=== PATIENT | male | born 1985 | race Caucasian/White ===

== ENCOUNTER 2017-04-07 20:19 | Emergency (ER) | payer OTHER ==
[~2017-04-07] VITALS: Ht 182.9 cm; Wt 80.0 kg
[2017-04-07 20:20] VITALS: BP 126/80
[2017-04-07] MEDS ORDERED: TETRACAINE 0.5% OPHTH SOLN 4ML OS ONE (21:15)
[2017-04-07] MEDS ORDERED: FLUORESCEIN OPHTH 1 MG STRIP OS ONE (21:15)
[2017-04-07] MEDS ORDERED: VIGA0.02 OS (22:11)
== END 2017-04-07 22:20 | disposition home or self-care (01) ==
LOC: M ED 20:19
DX: H10.9 Unspecified conjunctivitis (principal); Z87.891 Personal history of nicotine dependence; Z82.49 Family history of ischemic heart disease and other diseases of the circulatory system; Z83.49 Family history of other endocrine, nutritional and metabolic diseases

== ENCOUNTER → 2019-01-30 | Outpatient (REF) | payer OTHER, SELFPAY ==
[~2019-01-30] MED LIST: VIGA0.02 OS
== END ==
LOC: M LAB REF 16:31
PROVIDERS: ATTEND Physician Assistant
DX: R50.9 Fever, unspecified (principal)

== ENCOUNTER → 2021-09-14 | Outpatient (REF) | payer OTHER | LOC: M LAB REF 16:22 | PROVIDERS: ATTEND Physician Assistant | DX: R50.9 Fever, unspecified (principal); R05.9 Cough, unspecified ==

== ENCOUNTER → 2023-05-28 | Outpatient (CLI) | payer OTHER ==
[2023-05-28 13:10] LABS: ESTRADIOL 27.7 PG/ML (<39.8); LUTEINIZING HORMONE 2.6 mIU/ML (1.5-9.3)
[2023-05-28 13:11] LABS: FOLLICLE STIMULATING HORMONE 4.6 mIU/ML (1.4-18.1)
[2023-05-29 21:09] LABS: TESTOSTERONE FREE (DIRECT) 10.4 pg/mL (8.7-25.1)
== END ==
LOC: M WUC 08:53
PROVIDERS: ATTEND Physician Assistant
DX: N52.9 Male erectile dysfunction, unspecified (principal)

== ENCOUNTER → 2023-07-02 | Outpatient (CLI) | payer OTHER | LOC: M WUC 08:24 | PROVIDERS: ATTEND Physician Assistant | DX: E29.1 Testicular hypofunction (principal) ==

== ENCOUNTER → 2023-09-08 | Outpatient (REF) | payer OTHER | LOC: M LAB REF 17:56 | PROVIDERS: ATTEND Physician Assistant Medical | DX: B34.9 Viral infection, unspecified (principal) ==

== ENCOUNTER → 2023-11-19 | Outpatient (CLI) | payer OTHER ==
[2023-11-19 14:41] LABS: BASO # 0.1 10^3/uL (0.0-0.2); BASO % 0.8 % (0.0-1.0); EOS # 0.2 10^3/uL (0.0-0.5); EOS % 2.3 % (0.0-3.0); HEMATOCRIT 46.3 % (42.0-52.0); HEMOGLOBIN 14.5 g/dl (13.5-17.5); LYMPH # 2.2 10^3/uL (1.5-5.0); LYMPH % 29.6 % (24.0-44.0); MEAN CORPUSCULAR HEMOGLOBIN 25.2 pg (27.0-33.0); MEAN CORPUSCULAR HGB CONC 31.3 g/dl (32.0-36.5); MEAN CORPUSCULAR VOLUME 80.5 fl (80.0-96.0); MONO # 0.6 10^3/uL (0.0-0.8); MONO % 8.1 % (2.0-8.0); NEUTROPHILS # 4.4 10^3/uL (1.5-8.5); NEUTROPHILS % 59.1 % (36.0-66.0); PLATELET COUNT, AUTOMATED 283 10^3/uL (150-450); RED BLOOD COUNT 5.75 10^6/uL (4.30-6.10); WHITE BLOOD COUNT 7.5 10^3/uL (4.0-10.0)
[2023-11-19 14:59] LABS: PROSTATIC SPECIFIC AG MONITOR 1.12 NG/ML (< 4.00)
== END ==
LOC: M WUC 09:10
PROVIDERS: ATTEND Physician Assistant
DX: E29.1 Testicular hypofunction (principal); Z80.42 Family history of malignant neoplasm of prostate

== ENCOUNTER 2024-02-09 13:08 | Emergency (ER) | payer OTHER, SELFPAY ==
[~2024-02-09] VITALS: Ht 180.3 cm; Wt 81.0 kg
[2024-02-09 13:09] VITALS: BP 153/89; TEMP 98; O2SAT 98
[2024-02-09] MEDS ORDERED: TEST75GE (13:17)
[2024-02-09] MEDS ORDERED: TADA5TAB (13:17)
== END 2024-02-09 14:52 | disposition home or self-care (01) ==
LOC: M ED 13:08
DX: S61.302A Unspecified open wound of right middle finger with damage to nail, initial encounter (principal); W26.0XXA Contact with knife, initial encounter; F17.200 Nicotine dependence, unspecified, uncomplicated; Y92.9 Unspecified place or not applicable; Y93.G1 Activity, food preparation and clean up; Y99.0 Civilian activity done for income or pay; Z79.2 Long term (current) use of antibiotics; Z79.899 Other long term (current) drug therapy

== ENCOUNTER → 2024-04-07 | Outpatient (CLI) | payer OTHER ==
[~2024-04-07] MED LIST changes: +TADA5TAB; +TEST75GE
== END ==
LOC: M WUC 08:29
PROVIDERS: ATTEND Physician Assistant
DX: E29.1 Testicular hypofunction (principal)

== ENCOUNTER → 2024-06-10 | Outpatient (REF) | payer OTHER ==
[2024-06-10 13:50] LABS: BLOOD UREA NITROGEN 12 MG/DL (9-23); CALCIUM LEVEL 9.5 MG/DL (8.5-10.1); CARBON DIOXIDE LEVEL 26 MMOL/L (20-31); CHLORIDE LEVEL 109 MMOL/L (98-107); GLOMERULAR FILTRATION RATE > 60.0 (>60); GLUCOSE, FASTING 102 MG/DL (60-100); POTASSIUM SERUM 4.5 MMOL/L (3.5-5.1); SODIUM LEVEL 141 MMOL/L (136-145)
== END ==
LOC: M LAB REF 12:25
PROVIDERS: ATTEND Nurse Practitioner Family
DX: E66.3 Overweight (principal)

== ENCOUNTER → 2024-10-06 | Outpatient (CLI) | payer OTHER ==
[~2024-10-06] MED LIST changes: -TADA5TAB; +TADA5TAB94
[2024-10-06 11:49] LABS: HEMATOCRIT 46.8 % (42.0-52.0); MEAN CORPUSCULAR HEMOGLOBIN 25.5 pg (27.0-33.0); MEAN CORPUSCULAR HGB CONC 32.1 g/dl (32.0-36.5); MEAN CORPUSCULAR VOLUME 79.5 fl (80.0-96.0); PLATELET COUNT, AUTOMATED 264 10^3/uL (150-450); RED BLOOD COUNT 5.89 10^6/uL (4.30-6.10); WHITE BLOOD COUNT 8.3 10^3/uL (4.0-10.0)
[2024-10-06 12:11] LABS: PSA SCREENING 0.9 NG/ML (< 4.00)
== END ==
LOC: M WUC 08:31
PROVIDERS: ATTEND Physician Assistant
DX: E29.1 Testicular hypofunction (principal)

== ENCOUNTER → 2024-11-11 | Outpatient (REF) | payer OTHER ==
[2024-11-11 14:11] LABS: CHOLESTEROL RISK RATIO 3.67 (<5); HDL CHOLESTEROL 43.5 MG/DL (>40); LDL CHOLESTEROL 93.1 MG/DL (<100); NON-HDL-C 116.5 MG/DL
[2024-11-11 14:24] LABS: HEMOGLOBIN A1c 5.4 % (4.0-6.0)
== END ==
LOC: M LAB REF 12:53
PROVIDERS: ATTEND Nurse Practitioner Family
DX: E78.5 Hyperlipidemia, unspecified (principal); Z68.24 Body mass index [BMI] 24.0-24.9, adult

== ENCOUNTER → 2024-11-24 | Outpatient (REF) | payer OTHER ==
[2024-11-27 13:57] LABS: PSA FREE 0.3 ng/mL; PSA TOTAL 1.2 ng/mL (< OR = 4.0)
== END ==
LOC: M LAB REF 15:03
PROVIDERS: ATTEND Nurse Practitioner Family
DX: R63.5 Abnormal weight gain (principal); Z80.42 Family history of malignant neoplasm of prostate

== ENCOUNTER → 2025-03-24 | Outpatient (CLI) | payer OTHER ==
[~2025-03-24] MED LIST changes: +TADA5TAB2; -TADA5TAB94
[2025-03-24 15:16] LABS: PLATELET COUNT, AUTOMATED 275 10^3/uL (150-450)
== END ==
LOC: M WUC 08:40
PROVIDERS: ATTEND Physician Assistant
DX: E29.1 Testicular hypofunction (principal)